=== PATIENT | female | born 1960 | race African-American/Black ===

== ENCOUNTER → 2017-01-25 | Outpatient (CLI) | payer OTHER ==
[2013-10-31 10:08] VITALS: BP 93/65
[~2017-01-25] MED LIST: ALLO300T PO; AMLO10TA2 PO; ASPI325T8 PO; CARV25TA2 PO; CYCL10TA2 PO; FISH OIL OMEGA1 EACH PO; HYDR-2758 PO; HYDR25TA9 PO; LOSA100T6 PO; LOSA50TA6 PO; SIMV10TA3 PO
--- NOTE | 2017-01-25 10:39 | CARD ---
APPROVED REPORT EXAM: Two-dimensional and M-mode echocardiogram with Doppler and color Doppler. Other Information Quality : Good INDICATION CAD 2D DIMENSIONS Left Atrium(2D)4.1 (1.6-4.0cm)IVSd1.2 (0.7-1.1cm) Aortic Root(2D)2.2 (2.0-3.7cm)LVDd4.2 (3.9-5.9cm) LVOT Diameter1.9 (1.8-2.4cm)PWd1.2 (0.7-1.1cm) LVDs2.7 (2.5-4.0cm)FS (%) 35.3 % SV51.3 mlLVEF(%)65.1 (>50%) Aortic Valve AoV Peak Raul.197.2cm/sAoV VTI40.8cm AO Peak GR.15.6mmHgLVOT Peak Raul.136.9cm/s AO Mean GR.7mmHgAVA (VMAX)1.93cm2 ELIZABETH (VTI)2.10cm2 Mitral Valve MV E Rhkxkwca66.7cm/sMV DECEL [id number] MV A Zengweuy927.2cm/sE/A Ratio0.9 Tricuspid Valve TR P. Lhufvpld968ht/sRAP [id number] TR Peak Gr.70ewTsCHVU03qdJm LEFT VENTRICLE The left ventricle is normal size. There is mild concentric left ventricular hypertrophy. Left ventri rolando systolic function is normal. The Ejection Fraction is 55-60%. There is normal LV segmental wall m otion. Transmitral Doppler flow pattern is Grade I-abnormal relaxation pattern. RIGHT VENTRICLE The right ventricle is normal size. The right ventricular systolic function is normal. ATRIA The left atrium is mildly dilated. The right atrium size is normal. The interatrial septum is intact with no evidence for an atrial septal defect or patent foramen ovale as noted on 2-D or Doppler imagi ng. AORTIC VALVE The aortic valve is mildly thickened but opens well. Doppler and Color Flow revealed no significant a ortic regurgitation. There is no significant aortic valvular stenosis. MITRAL VALVE The mitral valve is normal in structure and function. There is no evidence of mitral valve prolapse. There is no mitral valve stenosis. Doppler and Color Flow revealed no mitral valve regurgitation note d. TRICUSPID VALVE The tricuspid valve is normal in structure and function. Doppler and Color Flow revealed mild tricusp id regurgitation. The PA pressure was estimated at 32 mmHg. There is no tricuspid valve stenosis. PULMONIC VALVE Doppler and Color Flow revealed trace to mild pulmonic valvular regurgitation. There is no pulmonic v alvular stenosis. GREAT VESSELS The aortic root is normal in size. The ascending aorta is normal in size. The IVC is normal in size a nd collapses >50% with inspiration. PERICARDIAL EFFUSION There is no pleural effusion. There is no evidence of significant pericardial effusion. Critical Notification Critical Value: No <Conclusion> Left ventricle systolic function is normal. The Ejection Fraction is 55-60%. There is normal LV segmental wall motion. Doppler and Color Flow revealed mild tricuspid regurgitation. The PA pressure was estimated at 32 mmH g.
== END | disposition home or self-care (01) ==
LOC: ECHO 09:00
PROVIDERS: ATTEND Internal Medicine Cardiovascular Disease
DX: I25.10 Atherosclerotic heart disease of native coronary artery without angina pectoris (principal); I07.1 Rheumatic tricuspid insufficiency; I42.9 Cardiomyopathy, unspecified
CPT/HCPCS: 93306

== ENCOUNTER → 2019-10-10 | Outpatient (CLI) | payer OTHER ==
[2013-10-31 10:08] VITALS: BP 93/65
[~2019-10-10] MED LIST changes: -AMLO10TA2 PO; +AMLO10TA8 PO; +HYDR-2145 PO; -HYDR-2758 PO; +HYDR-2761 PO; -HYDR25TA9 PO; +LOSA-73 PO; +LOSA100T14 PO; -LOSA100T6 PO; -LOSA50TA6 PO; +SIMV10TA15 PO; -SIMV10TA3 PO
--- NOTE | 2019-10-10 15:43 | CARD ---
MR#: [id number] Date of Study: 10/10/2019 Ordering Physician: CLAUDIA ROBERT, Referring Physician: CLAUDIA ROBERT, Tech: Patricia Preciado APPROVED REPORT EXAM: Two-dimensional and M-mode echocardiogram with Doppler and color Doppler. Other Information Quality : AverageHR: 71bpm Technically limited study due to body habitus. INDICATION Cardiac Disease: CAD Cardiomyopathy RISK FACTORS Hypertension Hyperlipidemia 2D DIMENSIONS RVDd2.1 (2.9-3.5cm)Left Atrium(2D)3.8 (1.6-4.0cm) IVSd0.9 (0.7-1.1cm)Aortic Root(2D)2.7 (2.0-3.7cm) LVDd4.7 (3.9-5.9cm)LVOT Diameter2.0 (1.8-2.4cm) PWd1.0 (0.7-1.1cm)LVDs2.9 (2.5-4.0cm) FS (%) 38.6 %SV69.1 ml LVEF(%)69.0 (>50%) Aortic Valve AoV Peak Raul.162.1cm/sAoV VTI31.3cm AO Peak GR.10.5mmHgLVOT Peak Raul.116.1cm/s LVOT VTI 25.85cmAO Mean GR.5mmHg ELIZABETH (VMAX)1.40rw4OFU (VTI)2.58cm2 Mitral Valve MV E Oixlvsbs72.8cm/sMV DECEL [id number] MV A Bfeluhns27.1cm/sMV E Mean Gr.2mmHg MV KWZ03meQ/A Ratio0.8 MVA (PHT)3.10cm2 TDI E/Lateral E'11.8E/Medial E'10.4 Pulmonary Valve PV Peak Pmcomxxl826.6cm/sPV Peak Grad.5mmHg Tricuspid Valve TR P. Mwhoffdz294qt/sRAP [id number] TR Peak Gr.12ufCiMEEZ26rtRa Pulmonary Vein S1 Xmyvhjsz69.3cm/sD2 Glyhwtxh62.1cm/s PVa [id number] LEFT VENTRICLE The left ventricle is normal size. There is normal left ventricular wall thickness. The left ventricu lar systolic function is normal and the ejection fraction is within normal range. The Ejection Fracti on is 55-60%. There is normal LV segmental wall motion. Transmitral Doppler flow pattern is Grade II- pseudonormal filling dynamics. RIGHT VENTRICLE The right ventricle is normal size. There is normal right ventricular wall thickness. The right ventr icular systolic function is normal. ATRIA The left atrium size is normal. The right atrium size is normal. The interatrial septum is intact wit h no evidence for an atrial septal defect or patent foramen ovale as noted on 2-D or Doppler imaging. AORTIC VALVE The aortic valve is thickened but opens well. Doppler and Color Flow revealed no significant aortic r egurgitation. There is no significant aortic valvular stenosis. Calculated aortic valve area is 3.07 cm2 with maximum pressure gradient of 13 mmHg and mean pressure gradient of 6 mmHg. MITRAL VALVE The mitral valve is normal in structure and function. There is no evidence of mitral valve prolapse. There is no mitral valve stenosis. Doppler and Color-flow revealed trace mitral regurgitation. TRICUSPID VALVE The tricuspid valve is normal in structure and function. Doppler and Color Flow revealed trace tricus pid regurgitation with an estimated PAP of 36 mmHg. There is no tricuspid valve stenosis. PULMONIC VALVE The pulmonic valve is not well visualized. Doppler and Color Flow revealed no pulmonic valvular regur gitation. There is no pulmonic valvular stenosis. GREAT VESSELS The aortic root is normal in size. The IVC is normal in size and collapses >50% with inspiration. PERICARDIAL EFFUSION There is no evidence of significant pericardial effusion. Critical Notification Critical Value: No <Conclusion> The left ventricular systolic function is normal and the ejection fraction is within normal range. Th e Ejection Fraction is 55-60%. There is normal LV segmental wall motion. Signed by : Arley Paz, Electronically Approved : 10/10/2019 15:43:03
== END | disposition home or self-care (01) ==
LOC: ECHO 08:57
PROVIDERS: ATTEND Internal Medicine Cardiovascular Disease
DX: I42.9 Cardiomyopathy, unspecified (principal)
CPT/HCPCS: 93306